=== PATIENT | female | born 1940 | race Caucasian/White ===

== ENCOUNTER 2017-01-28 17:14 | Emergency (ER) | payer MEDICARE, OTHER ==
[2017-01-28 19:36] VITALS: BP 161/55
--- NOTE | 2017-01-28 19:40 | UC ---
Abdominal Pain Female HPI - HPI Summary HPI Summary: The patient comes in today for: 1. Left flank and left abdominal pain, poor balance and gait disturbance: Onset: Yesterday afternoon. Palliative/provocative: When she lays down the pain is all gone. The pain is only there when she is up and moving around. Quality: aches, Region: Left flank with radiation towards the abdomen. Severity: 5/10 Time: Comes and goes depending on activity. Associated symptoms: Fevers: None Vomiting: None. Diarrhea: None. She states that she had diverticulosis. It is not clear if she has ever had diverticulitis. Rash: None. * - History of Current Complaint Chief Complaint: UCAbdominalPain Stated Complaint: FLANK & BACK PAIN Time Seen by Provider: 01/28/17 19:34 Hx Obtained From: Patient Allergies/Adverse Reactions: Allergies Allergy/AdvReac Type Severity Reaction Status Date / Time Statins Allergy Facial Verified 01/28/17 18:29 Redness/Flushing Home Medications: Home Medications Calcium 250 mg PO 01/28/17 [History Confirmed 01/28/17] Cholecalciferol [Vitamin D3] 01/28/17 [History] Ezetimibe TAB* [Zetia TAB*] 10 mg PO DAILY 01/28/17 [History Confirmed 01/28/17] Omeprazole 40 mg PO 01/28/17 [History] Warfarin TAB(*) [Coumadin TAB(*)] 2.5 mg PO 1700 01/28/17 [History Confirmed 09/04] PMH/Surg Hx/FS Hx/Imm Hx Previously Healthy: No - She has "balance issues." Endocrine History Of: Reports: Diabetes - On no medications for this., Dyslipidemia Denies: Thyroid Disease, Hyperthyroidism, Hypothyroidism Cardiovascular History Of: Reports: Cardiac Disorders - 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 Denies: Hypertension, Pacemaker/ICD, Myocardial Infarction, Congestive Heart Failure, Atrial Fibrillation, Deep Vein Thrombosis, Bleeding Disorders Respiratory History Of: Denies: COPD, Asthma, Bronchitis, Pneumonia, Pulmonary Embolism GI/ History Of: Denies: Gastroesophageal Reflux, Ulcer, Gastrointestinal Bleed, Gall Bladder Disease, Kidney Stones, Diverticulitis, Renal Disease, Urosepsis Neurological History Of: Reports: CVA - 1972 Denies: TIA, Dementia, Seizures, Migraine Psychological History Of: Denies: Anxiety, Depression, Bipolar Disorder, Schizophrenia, Post Traumatic Stress Disorder Cancer History Of: Denies: Lung Cancer, Colorectal Cancer, Breast Cancer, Prostate Cancer, Cervical Cancer Other History Of: Anticoagulant Therapy - Warfarin Negative For: HIV, Hepatitis B, Hepatitis C - Surgical History Surgical History: Yes Surgery Procedure, Year, and Place: CABG 1973, appenedectomy, gallbladder - Family History Known Family History: Positive: Hypertension Negative: Cardiac Disease - Social History Occupation: Retired Alcohol Use: None Substance Use Type: None Smoking Status (MU): Former Smoker - Immunization History Most Recent Pneumonia Vaccination: Pt states up to date. Review of Systems Constitutional: Negative Skin: Negative Eyes: Negative ENT: Negative Respiratory: Negative Cardiovascular: Negative Gastrointestinal: Abdominal Pain Genitourinary: Negative Motor: Negative All Other Systems Reviewed And Are Negative: Yes Physical Exam Triage Information Reviewed: Yes Appearance: Well-Appearing, No Pain Distress - She is animated and friendly, Well-Nourished Vital Signs: Initial Vital Signs Temp 98.1 F 01/28/17 18:32 Pulse 62 01/28/17 18:32 Resp 18 01/28/17 18:32 BP 149/50 01/28/17 18:32 Pulse Ox 97 01/28/17 18:32 Vital Signs Reviewed: Yes Eyes: Positive: Conjunctiva Clear. Negative: Discharge ENT: Positive: Hearing grossly normal. Negative: Pharyngeal erythema, Nasal congestion, Nasal drainage, TM bulging, TM dull, TM red, Tonsillar swelling, Tonsillar exudate Dental: Negative: Gross Decay/Caries @, Dental Fracture @ Neck: Positive: Supple, Nontender, No Lymphadenopathy. Negative: Nuchal Rigidity Respiratory: Positive: Chest non-tender, Lungs clear, No respiratory distress, No accessory muscle use. Negative: Crackles, Wheezing Cardiovascular: Positive: RRR, No Murmur Abdomen Description: Positive: No Organomegaly, Soft, CVA Tenderness (L). Negative: Nontender - She has tenderness to palpation of the LLQ and the left flank., Distended, Guarding, Peritoneal Signs Musculoskeletal: Positive: Strength Intact, ROM Intact, No Edema Neurological: Positive: Alert, Muscle Tone Normal Psychological: Positive: Age Appropriate Behavior, Consolable Skin: Negative: rashes, breakdown Abd Pain Female Course/Dx - Course Course Of Treatment: Patient and her relative were told that I did not know for sure what was causing her pain. It could be diverticulosis, but it would be unusual for her to have flank pain with that. Both the patient and her female family relative were told of her diagnostic and treatment options. They were told that the safest thing would be to go to the ER for further evaluation. They agreed and wanted to go by private car. - Differential Dx/Diagnosis Differential Diagnosis: Bowel Obstruction, Constipation, Diverticulitis Provider Diagnoses: Left lower quadrant abdominal and left flank pain. - Physician Notification/Consults Discussed Patient Care With: Estelle Sheppard (charge nurse in ER)--no provider available. Discharge - Discharge Plan Condition: Stable Disposition: HOME Additional Instructions: The patient is going to [facility] [place] [facility] ER via private car. She is to go directly there.
== END 2017-01-28 20:35 | disposition home or self-care (01) ==
LOC: UCEAST 17:14
DX: R10.32 Left lower quadrant pain (principal); E11.9 Type 2 diabetes mellitus without complications; E78.5 Hyperlipidemia, unspecified; I51.89 Other ill-defined heart diseases; Z79.01 Long term (current) use of anticoagulants; Z86.73 Personal history of transient ischemic attack (TIA), and cerebral infarction without residual deficits; Z95.1 Presence of aortocoronary bypass graft; Z90.49 Acquired absence of other specified parts of digestive tract; Z87.891 Personal history of nicotine dependence
CPT/HCPCS: 99202; G0463

== ENCOUNTER 2017-01-28 20:46 | Emergency (ER) | payer MEDICARE, OTHER ==
--- NOTE | 2017-01-28 21:47 | ED ---
Esau José Billy, scribed for Collins Coelho MD on 01/28/17 at 2125 . Back Pain - HPI Summary HPI Summary: Patient is a 76 year-old female coming to [facility] with a complain of left-sided abdominal pain radiating to the left flank. The pain began yesterday afternoon when she was seated in a car. She reports that the pain in her flank is worse with movement and while walking. She took Tylenol this morning without any improvement. Denies fevers, vomiting, or diarrhea. Denies any pain with deep breaths. No known recent injury or trauma. - History of Current Complaint Chief Complaint: EDFlankPain Stated Complaint: BACK AND LEFT SIDE PAIN-SENT FROM [facility] Time Seen by Provider: 01/28/17 21:11 Hx Obtained From: Patient Onset/Duration: Gradual Onset Onset/Duration: Started Days Ago Timing: Constant Back Pain Location: Is Discrete @ Severity Initially: Moderate Severity Currently: Moderate Aggravating Symptom(s): Movement, Walking Alleviating Symptom(s): Rest Associated Signs And Symptoms: Positive: Abdominal Pain, Flank Pain - Allergies/Home Medications Allergies/Adverse Reactions: Allergies Allergy/AdvReac Type Severity Reaction Status Date / Time Statins Allergy Facial Verified 01/28/17 20:55 Redness/Flushing PMH/Surg Hx/FS Hx/Imm Hx Endocrine/Hematology History: Reports: Hx Anticoagulant Therapy - Warfarin, Hx Diabetes Denies: Hx Thyroid Disease Cardiovascular History: Denies: Hx Congestive Heart Failure, Hx Deep Vein Thrombosis, Hx Hypertension , Hx Myocardial Infarction, Hx Pacemaker/ICD Respiratory History: Denies: Hx Asthma, Hx Chronic Obstructive Pulmonary Disease (COPD), Hx Lung Cancer, Hx Pneumonia, Hx Pulmonary Embolism GI History: Denies: Hx Gall Bladder Disease, Hx Gastrointestinal Bleed, Hx Ulcer, Hx Urosepsis History: Denies: Hx Kidney Stones, Hx Renal Disease Neurological History: Denies: Hx Dementia, Hx Migraine, Hx Seizures, Hx Transient Ischemic Attacks (TIA) Psychiatric History: Denies: Hx Anxiety, Hx Depression, Hx Schizophrenia, Hx Bipolar Disorder - Surgical History Surgery Procedure, Year, and Place: CABG 1972, appenedectomy, gallbladder Infectious Disease History: Reports: Hx Shingles Denies: Traveled Outside the [place] in Last 30 Days - Family History Known Family History: Positive: Hypertension Negative: Cardiac Disease - Social History Alcohol Use: None Substance Use Type: Reports: None Smoking Status (MU): Former Smoker Review of Systems Negative: Fever Negative: Vomiting, Diarrhea Positive: flank pain All Other Systems Reviewed And Are Negative: Yes Physical Exam Triage Information Reviewed: Yes Vital Signs On Initial Exam: Initial Vitals Temp Pulse Resp BP Pulse Ox 97.9 F 68 16 137/53 98 01/28/17 20:50 01/28/17 20:50 01/28/17 20:50 01/28/17 20:50 01/28/17 20:50 Vital Signs Reviewed: Yes Appearance: Positive: Well-Appearing, No Pain Distress Skin: Positive: Warm Head/Face: Positive: Normal Head/Face Inspection Eyes: Positive: KATY ENT: Positive: Hearing grossly normal Neck: Positive: Supple Respiratory/Lung Sounds: Positive: Breath Sounds Present Cardiovascular: Positive: RRR Abdomen Description: Positive: Nontender, No Organomegaly, Soft. Negative: CVA Tenderness (R), CVA Tenderness (L) Bowel Sounds: Positive: Present Musculoskeletal: Positive: Strength/ROM Intact Neurological: Positive: Sensory/Motor Intact, Alert, Oriented to Person Place, Time Psychiatric: Positive: Affect/Mood Appropriate Diagnostics - Vital Signs Vital Signs Temp Pulse Resp BP Pulse Ox 01/28/17 20:50 97.9 F 68 16 137/53 98 - Laboratory Result Diagrams: 01/28/17 22:55 01/28/17 22:55 Lab Statement: Any lab studies that have been ordered have been reviewed, and results considered in the medical decision making process. - Radiology Ribs Radiology Interpretation Completed By: Radiologist - No evidence for LEFT rib fracture or suspicious focal osseous lesion. Stigmata of chronic obstructive pulmonary disease and emphysema. No acute cardiopulmonary process evident. Re-Evaluation - Re-Evaluation First Eval Change: Improved Back Pain Course/Dx - Diagnoses Provider Diagnoses: UTI (urinary tract infection) Discharge - Discharge Plan Condition: Improved Disposition: HOME Prescriptions: Sulfamethox/Trimethoprim DS* [Bactrim DS 800/160 TAB*] 1 tab PO BID #14 tab Patient Education Materials: Urinary Traction Infection in Older Adults (ED) Referrals: [facility] [Outside] The documentation as recorded by the Esau garduno Billy accurately reflects the service I personally performed and the decisions made by me, Collins Coelho MD.
--- NOTE | 2017-01-28 22:04 | RAD ---
Indication: Recent onset LEFT lower flank pain. Atraumatic. Comparison: August 20, 2010 Technique: PA chest and 4 view LEFT unilateral rib series. Report: Extensive costochondral calcifications. No rib fracture or focal osseous lesion evident. Elevated lung volumes and moderately coarse interstitial markings as well as upper lung zone interstitial markings rarefaction. Cardiomegaly with mild interval increase. Unremarkable central pulmonary vasculature and mediastinal contours. IMPRESSION: No evidence for LEFT rib fracture or suspicious focal osseous lesion. Stigmata of chronic obstructive pulmonary disease and emphysema. No acute cardiopulmonary process evident.
[2017-01-28 23:12] LABS: Hematocrit 44 % (35-47); Hemoglobin 14.5 g/dl (12.0-16.0); Mean Corpuscular HGB Conc 33 g/dl (31-36); Mean Corpuscular Hemoglobin 31 pg (27-31); Mean Corpuscular Volume 96 fL (80-97); Mean Platelet Volume 10 um3 (7.4-10.4); Red Blood Count 4.62 10^6/ul (4.0-5.4); Red Cell Distribution Width 14 % (10.5-15); White Blood Count 9.4 10^3/ul (3.5-10.8)
[2017-01-28 23:23] LABS: BUN/Creatinine Ratio 19.1 (8-20); Calcium 9.6 mg/dL (8.6-10.3); EGFR African American 50.6 (>60); EGFR Non-African American 39.4 (>60); Potassium 3.9 mmol/L (3.5-5.0)
[2017-01-29 00:35] LABS: Urine Bacteria 1+ (Absent); Urine Bilirubin Negative (Negative); Urine Glucose Negative (Negative); Urine Nitrite Negative (Negative)
[2017-01-29] MEDS ORDERED: Sulfamethox/Trimethoprim DS 800/160* TAB PO ONE (00:40)
[2017-01-29 02:03] VITALS: BP 127/55
== END 2017-01-29 02:09 | disposition home or self-care (01) ==
LOC: ED 20:46 → SUPCPDRO 20:46 → ED 01-29 02:09
DX: N39.0 Urinary tract infection, site not specified (principal); R10.84 Generalized abdominal pain; Z87.891 Personal history of nicotine dependence
CPT/HCPCS: 36415; 80048; 81003; 81015; 85025; 87086; 99282; A9270-GY

== ENCOUNTER 2018-02-02 11:20 | Emergency (ER) | payer MEDICARE, OTHER ==
[2018-02-02 11:42] VITALS: BP 143/63
--- NOTE | 2018-02-02 13:05 | UC ---
Skin Complaint HPI - HPI Summary HPI Summary: Patient is a 77-year-old female presenting to the with chief complaint of ulceration to the left lower extremity. She endorses pruritus without pain. She states the area became very itchy approximately 1 week ago and she has been itching it over the past week. She is applied Vicks vapor rub and bacitracin without relief. She has not taken an antibiotic. She states a similar ulceration has happened in the past but has cleared up with Vicks vapor rub. She was also seen by her physician with this ulceration, diagnosed with a fungal infection at first and later diagnosed with an ulceration. She has never seen to wound care clinic. Denies any fevers, sweats, chills. She has no other ulcerations to the skin. - History of Current Complaint Chief Complaint: UCSkin Time Seen by Provider: 02/02/18 11:47 Stated Complaint: SKIN ISSUE Hx Obtained From: Patient ?: No Onset/Duration: Sudden Onset Skin Exposure Onset/Duration: Days Ago Timing: Constant Onset Severity: Mild Pain Intensity: 0 Pain Scale Used: 0-10 Numeric Location: Discrete - left lower extremity Character: Pain Aggravating Factor(s): Nothing Alleviating Factor(s): Nothing Associated Signs & Symptoms: Positive: Negative - Allergy/Home Medications Allergies/Adverse Reactions: Allergies Allergy/AdvReac Type Severity Reaction Status Date / Time Penicillins Allergy Hives Verified 02/02/18 11:33 [id number] Reductase Allergy Facial Verified 02/02/18 11:34 Inhibitor Redness/Flushing Statins Allergy Facial Uncoded 02/02/18 11:34 Redness/Flushing Home Medications: Home Medications Calcium Carbonate [Calcium] 500 mg PO DAILY 02/02/18 [History Confirmed 02/02/18 ] Cholecalciferol (Vitamin D3) [Vitamin D3] 1 tab PO DAILY 02/02/18 [History Confirmed 02/02/18] Lisinopril [Lisinopril 2.5 MG-] 2.5 mg PO DAILY 02/02/18 [History Confirmed ] Review of Systems Constitutional: Negative Skin: Rash, Other - 6x8cm ulceration to the left lower extremity Eyes: Negative Respiratory: Negative Cardiovascular: Negative Motor: Negative Neurovascular: Negative Neurological: Negative Is Patient Immunocompromised?: No All Other Systems Reviewed And Are Negative: Yes PMH/Surg Hx/FS Hx/Imm Hx Previously Healthy: Yes Other History Of: Anticoagulant Therapy - Warfarin Negative For: HIV, Hepatitis B, Hepatitis C - Surgical History Surgical History: Yes Surgery Procedure, Year, and Place: CABG 1973, appenedectomy, gallbladder, tonsils,ovarian cysts removed - Family History Known Family History: Positive: Hypertension Negative: Cardiac Disease - Social History Occupation: Unemployed Lives: With Family Alcohol Use: None Substance Use Type: None Smoking Status (MU): Former Smoker - Immunization History Most Recent Pneumonia Vaccination: Pt states up to date. Physical Exam Triage Information Reviewed: Yes Vital Signs: Initial Vital Signs Temp 97.7 F 02/02/18 11:36 Pulse 66 02/02/18 11:36 Resp 16 02/02/18 11:36 BP 143/63 02/02/18 11:36 Pulse Ox 98 02/02/18 11:36 Vital Signs Reviewed: Yes Eye Exam: Normal Eyes: Positive: Conjunctiva Clear Neck exam: Normal Neck: Positive: Supple Respiratory Exam: Normal Respiratory: Positive: Chest non-tender, Lungs clear Cardiovascular Exam: Normal Cardiovascular: Positive: RRR Musculoskeletal Exam: Normal Musculoskeletal: Positive: Strength Intact Neurological Exam: Normal Neurological: Positive: Alert Psychological: Positive: Normal Response To Family Skin Exam: Normal Course/Dx - Course Course Of Treatment: Ulceration appears to be 7 cm x 6 cm in length to the left anterior lower extremity. Bacitracin applied prior to arrival. She denies any fevers, sweats, chills. She does not feel the ulceration is enlarging. Continues to complain of pruritus, but no pain. Silvadene and Bactrim given his prescriptions. However, this may be fungal versus viral. Patient is to follow-up with Dr. Santiago in the wound care clinic. For any worsening symptoms , she may return to the . - Diagnoses Provider Diagnoses: Ulceration Discharge - Sign-Out/Discharge Documenting (check all that apply): Discharge/Admit/Transfer - Discharge Plan Condition: Stable Disposition: HOME Prescriptions: Silver Sulfadiazine 1%* [SILVadine 1%*] 1 applic TOPICAL BID #1 tube Sulfamethox/Trimethoprim DS* [Bactrim DS 800/160 TAB*] 1 tab PO BID #10 tab MDD 2 Patient Education Materials: Acute Wound Care (ED) Referrals: Bryan Santiago MD [Medical Doctor] - No Primary Care Phys,NOPCP [Primary Care Provider] - Additional Instructions: Apply to affected area twice daily Please follow up with wound care - Billing Disposition and Condition Condition: STABLE Disposition: HOME
== END 2018-02-02 12:50 | disposition home or self-care (01) ==
LOC: UCEAST 11:20
DX: L97.929 Non-pressure chronic ulcer of unspecified part of left lower leg with unspecified severity (principal); Z88.0 Allergy status to penicillin; Z88.8 Allergy status to other drugs, medicaments and biological substances; Z87.891 Personal history of nicotine dependence
CPT/HCPCS: 99212; G0463

== ENCOUNTER 2019-03-17 15:50 | Emergency (ER) | payer MEDICARE, OTHER ==
[2019-03-17 18:36] LABS: ABS Basophils 0.1 10^3/ul (0-0.2); ABS Eosinophils 0.4 10^3/ul (0-0.6); ABS Lymphocytes 3.2 10^3/ul (1.0-4.8); ABS Monocytes 1.1 10^3/ul (0-0.8); ABS Neutrophils 4.8 10^3/ul (1.5-7.7); Eosinophil % 4.1 %; Hematocrit 42 % (35-47); Hemoglobin 14.6 g/dL (12.0-16.0); Lymphocyte % 33.8 %; Mean Corpuscular HGB Conc 35 g/dL (31-36); Mean Corpuscular Hemoglobin 34 pg (27-31); Mean Corpuscular Volume 97 fL (80-97); Mean Platelet Volume 10.1 fL (7.4-10.4); Platelet Count 185 10^3/uL (150-450); Red Blood Count 4.32 10^6 /uL (3.70-4.87); Red Cell Distribution Width 14 % (10-15); White Blood Count 9.5 10^3/uL (3.5-10.8)
[2019-03-17 18:40] LABS: Albumin 4.2 g/dL (3.2-5.2); Potassium 4.9 mmol/L (3.5-5.0); Total Bilirubin 0.6 mg/dL (0.2-1.0)
[2019-03-17 18:46] LABS: Albumin/Globulin Ratio 1.4 (1-3); BUN/Creatinine Ratio 17.5 (8-20); EGFR African American 52.4 (>60); EGFR Non-African American 43.3 (>60); Globulin 2.9 g/dL (2-4); Total Protein 7.1 g/dL (6.4-8.9)
--- NOTE | 2019-03-17 18:47 | ED ---
Abdominal Pain/Female - HPI Summary HPI Summary: This patient is a 78 year old female presenting to [facility] with a chief complaint of abdominal pain since 2 days ago. She states the pain is in her epigastric area and that the pain does not radiate. The patient states she has had a pruritic rash for a year on her upper extremities bilaterally and her left leg and thinks it may be related. She reports nausea. - History of Current Complaint Chief Complaint: EDAbdPain Stated Complaint: ABD PAIN, BROKE OUT ON ARMS PER PT Time Seen by Provider: 03/17/19 18:41 Hx Obtained From: Patient Severity Initially: Mild Severity Currently: Mild Pain Intensity: 3 Pain Scale Used: 0-10 Numeric Location: Epigastric Allergies/Adverse Reactions: Allergies Allergy/AdvReac Type Severity Reaction Status Date / Time Penicillins Allergy Hives Verified 02/02/18 11:33 [id number] Reductase Allergy Facial Verified 02/02/18 11:34 Inhibitor Redness/Flushing Statins Allergy Facial Uncoded 02/02/18 11:34 Redness/Flushing Home Medications: Home Medications ALPRAZolam TAB* [Xanax TAB*] 0.25 mg PO BID PRN 03/17/19 [History Confirmed ] Biotin 1 mg PO DAILY 03/17/19 [History Confirmed 03/17/19] Metoprolol Succinate XL TAB* [Toprol XL TAB*] 25 mg PO DAILY 03/17/19 [History Confirmed 03/17/19] Triamcinolone 0.025% CM(NF) [Kenalog Cream 0.025%*] 1 applic TOPICAL BID [History Confirmed 03/17/19] PMH/Surg Hx/FS Hx/Imm Hx Endocrine/Hematology History: Reports: Hx Anticoagulant Therapy - Warfarin, Hx Diabetes - Diet Controlled Denies: Hx Thyroid Disease Cardiovascular History: Denies: Hx Congestive Heart Failure, Hx Deep Vein Thrombosis, Hx Hypertension , Hx Myocardial Infarction, Hx Pacemaker/ICD Respiratory History: Denies: Hx Asthma, Hx Chronic Obstructive Pulmonary Disease (COPD), Hx Lung Cancer, Hx Pneumonia, Hx Pulmonary Embolism GI History: Denies: Hx Gall Bladder Disease, Hx Gastrointestinal Bleed, Hx Ulcer, Hx Urosepsis History: Denies: Hx Kidney Stones, Hx Renal Disease Neurological History: Denies: Hx Dementia, Hx Migraine, Hx Seizures, Hx Transient Ischemic Attacks (TIA) Psychiatric History: Denies: Hx Anxiety, Hx Depression, Hx Schizophrenia, Hx Bipolar Disorder - Surgical History Surgery Procedure, Year, and Place: CABG 1972, appenedectomy 1967 , gallbladder , tonsils,ovarian cysts removed Infectious Disease History: No Infectious Disease History: Reports: Hx Shingles Denies: Traveled Outside the [place] in Last 30 Days - Family History Known Family History: Positive: Hypertension Negative: Cardiac Disease - Social History Alcohol Use: None Substance Use Type: Reports: None Smoking Status (MU): Former Smoker Review of Systems Positive: Abdominal Pain, Nausea Positive: Rash All Other Systems Reviewed And Are Negative: Yes Physical Exam - Summary Physical Exam Summary: Appearance: The patient is well-nourished in no acute distress and in no acute pain. Skin: The skin is warm and dry and skin color reflects adequate perfusion. Excoriated erythematous confluent macular rash on her upper and lower extremities. HEENT: The head is normocephalic and atraumatic. The pupils are equal and reactive. The conjunctivae are clear and without drainage. Nares are patent and without drainage. Mouth reveals moist mucous membranes and the throat is without erythema and exudate. The external ears are intact. The ear canals are patent and without drainage. The tympanic membranes are intact. Neck: The neck is supple with full range of motion and non-tender. There are no carotid bruits. There is no neck vein distension. Respiratory: Chest is non-tender. Lungs are clear to auscultation and breath sounds are symmetrical and equal. Cardiovascular: Heart is regular rate and rhythm. There is no murmur or rub auscultated. There is no peripheral edema and pulses are symmetrical and equal. Abdomen: The abdomen is soft and non-tender. There are normal bowel sounds heard in all four quadrants and there is no organomegaly palpated. Musculoskeletal: There is no back tenderness noted. Extremities are non-tender with full range of motion. There is good capillary refill. There is no peripheral edema or calf tenderness elicited. Neurological: Patient is alert and oriented to person, place and time. The patient has symmetrical motor strength in all four extremities. Cranial nerves are grossly intact. Deep tendon reflexes are symmetrical and equal in all four extremities. Psychiatric: The patient has an appropriate affect and does not exhibit any anxiety or depression. Triage Information Reviewed: Yes Vital Signs On Initial Exam: Initial Vitals Temp Pulse Resp BP Pulse Ox 97.3 F 53 18 179/66 98 03/17/19 15:58 03/17/19 15:58 03/17/19 15:58 03/17/19 15:58 03/17/19 15:58 Vital Signs Reviewed: Yes Diagnostics - Vital Signs Vital Signs Temp Pulse Resp BP Pulse Ox 03/17/19 17:45 96.6 F 54 18 177/80 96 03/17/19 15:58 97.3 F 53 18 179/66 98 - Laboratory Lab Results: Lab Results 03/17/19 03/17/19 Range/Units 18:21 18:21 WBC 9.5 (3.5-10.8) 10^3/uL RBC 4.32 (3.70-4.87) 10^6 /uL Hgb 14.6 (12.0-16.0) g/dL Hct 42 (35-47) % MCV 97 (80-97) fL MCH 34 H (27-31) pg MCHC 35 (31-36) g/dL RDW 14 (10-15) % Plt Count 185 (150-450) 10^3/uL MPV 10.1 (7.4-10.4) fL Neut % (Auto) 50.1 % Lymph % (Auto) 33.8 % [place] % (Auto) 11.1 % Eos % (Auto) 4.1 % Baso % (Auto) 0.9 % Absolute Neuts (auto) 4.8 (1.5-7.7) 10^3/ul Absolute Lymphs (auto) 3.2 (1.0-4.8) 10^3/ul Absolute Monos (auto) 1.1 H (0-0.8) 10^3/ul Absolute Eos (auto) 0.4 (0-0.6) 10^3/ul Absolute Basos (auto) 0.1 (0-0.2) 10^3/ul Absolute Nucleated RBC 0.0 10^3/ul Nucleated RBC % 0.0 Sodium 139 (135-145) mmol/L Potassium 4.9 (3.5-5.0) mmol/L Chloride 106 (101-111) mmol/L Carbon Dioxide 25 (22-32) mmol/L Anion Gap 8 (2-11) mmol/L BUN Pending Creatinine Pending Est GFR ( Amer) Pending Est GFR (Non-Af Amer) Pending BUN/Creatinine Ratio Pending Glucose Pending Calcium 10.0 (8.6-10.3) mg/dL Total Bilirubin 0.60 (0.2-1.0) mg/dL AST Pending ALT Pending Alkaline Phosphatase Pending Troponin I Pending Total Protein Pending Albumin 4.2 (3.2-5.2) g/dL Globulin Pending Albumin/Globulin Ratio Pending Lipase Pending Result Diagrams: 03/17/19 18:21 03/17/19 18:21 Lab Statement: Any lab studies that have been ordered have been reviewed, and results considered in the medical decision making process. - EKG 1753 Cardiac Rate: Bradycardia EKG Rhythm: Atrial Fibrillation - 38 BPM Abdominal Pain Fem Course/Dx - Course Course Of Treatment: Ms. Greco was nontoxic in appearance with stable vital signs here. Her exam was unremarkable except for a nondescript rash that she has had for a year. Her urinalysis did show a likely UTI with positive nitrates. I will treat her with antibiotics and hope that this resolves the issue for her abdominal pain that is currently gone. - Diagnoses Provider Diagnoses: UTI (urinary tract infection) Discharge - Sign-Out/Discharge Documenting (check all that apply): Patient Departure - Discharge Patient Received Moderate/Deep Sedation with Procedure: No - Discharge Plan Condition: Stable Disposition: HOME Prescriptions: Nitrofurantoin Monohyd/M-Cryst [Macrobid 100 mg Capsule] 100 mg PO BID #14 cap Nitrofurantoin Monohyd/M-Cryst [Macrobid 100 mg Capsule] 1,000 mg PO BID #10 cap Patient Education Materials: Urinary Tract Infection in Women (ED) Referrals: No Primary Care Phys,NOPCP [Primary Care Provider] - Additional Instructions: Follow up with your [place] or [place] primary care provider. Return to ED with any new or worsening symptoms. - Billing Disposition and Condition Condition: STABLE Disposition: Home - Attestation Statements Document Initiated by Scribe: Yes Documenting Scribe: Rachid Garcia Provider For Whom Scribe is Documenting (Include Credential): Ubaldo Knott MD Scribe Attestation: Rachid José, scribed for Ubaldo Knott MD on 03/17/19 at 2142. Scribe Documentation Reviewed: Yes Provider Attestation: The documentation as recorded by the scribe, Rachid Garcia accurately reflects the service I personally performed and the decisions made by me, Ubaldo Knott MD Status of Scribe Document: Viewed
[2019-03-17] MEDS ORDERED: Acetaminophen TAB* 325 MG PO ONE (18:50)
[2019-03-17 19:51] LABS: Urine Appearance Cloudy; Urine Bacteria Absent (Absent); Urine Bilirubin Negative (Negative); Urine Blood 2+ (Negative); Urine Color Yellow; Urine Glucose Negative (Negative); Urine Ketones Negative (Negative); Urine Nitrite Positive (Negative); Urine Protein Negative (Negative); Urine Red Blood Cell Trace(0-2/hpf) (Absent); Urine Specific Gravity 1.004 (1.010-1.030); Urine Squamous Epithelial Cell Present (Absent); Urine Urobilinogen Negative (Negative); Urine White Blood Cell 3+(>20/hpf) (Absent)
[2019-03-17] MEDS ORDERED: Nitrofurantoin Macrocrystals* 100 MG CAP PO ONE ×3 (20:00→20:30)
[2019-03-17 20:21] VITALS: BP 173/91
--- NOTE | 2019-03-19 15:30 | PN ---
Progress Note - Progress Note Date of Service: 03/17/19 Note: Urine culture preliminary grew Escherichia coli Patient was placed on Macrobid prior to discharge This is sensitive organism Nothing further required
== END 2019-03-17 20:20 | disposition home or self-care (01) ==
LOC: ED 15:50
DX: N39.0 Urinary tract infection, site not specified (principal); I48.91 Unspecified atrial fibrillation; E11.9 Type 2 diabetes mellitus without complications; Z88.0 Allergy status to penicillin; Z88.8 Allergy status to other drugs, medicaments and biological substances; Z79.899 Other long term (current) drug therapy; Z79.01 Long term (current) use of anticoagulants; Z79.51 Long term (current) use of inhaled steroids; Z87.891 Personal history of nicotine dependence
CPT/HCPCS: 36415; 80053; 81003; 81015; 83605; 83690; 84484; 85025; 87077; 87086; 87186; 93005; 99283; A9270-GY